=== PATIENT | female | born 1980 | race American Indian/Alaskan Native ===

== ENCOUNTER 2018-08-29 17:48 | Inpatient (IN) | payer SELFPAY ==
[2018-08-29] MEDS ORDERED: NACL 0.9% 1000 ML 1,000 ML IV ONE (17:54)
--- NOTE | 2018-08-29 17:55 | Emergency Department Report ---
Chief Complaint: Hyperglycemia Stated Complaint: POSSIBLE HIGH GLUCOSE Time Seen by Provider: 08/29/18 17:54 - HPI History of Present Illness: dm gastroparesis actively vomiting VS noted Main ED phoned for bed orders placed see emr ABC intact MSE completed MSE screening note: Focused history and physical exam performed. Due to findings the following was ordered: ED Disposition for MSE Condition: Stable
[2018-08-29 18:44] LABS: Hematocrit 35.9 % (30.3-42.9); Hemoglobin 11.8 gm/dl (10.1-14.3); Mean Corpuscular HGB Conc 33 % (30-34); Mean Corpuscular Volume 78 fl (79-97); Platelet Count 249 K/mm3 (140-440); Red Blood Count 4.57 M/mm3 (3.65-5.03); Red Cell Distribution Width 14.8 % (13.2-15.2)
[2018-08-29] MEDS ORDERED: ZOFRAN IV ONE (18:52)
--- NOTE | 2018-08-29 18:54 | Emergency Department Report ---
HPI - General Chief Complaint: Hyperglycemia Time Seen by Provider: 08/29/18 17:54 - HPI HPI: 37-year-old female presents to the emergency department with nausea and vomiting has been going on since late last night or early this morning. Most of the info rmation is been given by her significant other, who is bedside, as the patient is actively vomiting. She has a history of insulin-dependent diabetes, hypertension and gastroparesis. The patient does not have a primary care physician and has been unable to afford her insulin. For this reason he thinks that she could also be in diabetic ketoacidosis, which he has been in before. No recent travel or sick contacts at home. She has not taken anything for her symptoms prior to arrival. ED Past Medical Hx - Past Medical History Previous Medical History?: Yes Hx Hypertension: Yes Hx Diabetes: Yes Additional medical history: Gastroparesis - Surgical History Past Surgical History?: Yes Additional Surgical History: C section - Medications Home Medications: Home Medications Medication Instructions Recorded Confirmed Last Taken Type No Known Home Medications [No 08/29/18 08/29/18 Unknown History Reported Home Medications] ED Review of Systems ROS: Stated complaint: POSSIBLE HIGH GLUCOSE Other details as noted in HPI Comment: All other systems reviewed and negative Constitutional: denies: chills, fever Eyes: denies: eye pain, vision change ENT: denies: ear pain, throat pain Respiratory: denies: cough, shortness of breath Cardiovascular: denies: chest pain, palpitations Gastrointestinal: nausea, vomiting Genitourinary: denies: dysuria, discharge Musculoskeletal: denies: back pain, arthralgia Skin: denies: rash, lesions Neurological: denies: headache, weakness Physical Exam - Physical Exam Vital Signs: Vital Signs 08/29/18 17:55 Temperature 97.9 F Pulse Rate 117 H Respiratory 22 Rate Blood Pressure 207/129 [Right] O2 Sat by Pulse 97 Oximetry Physical Exam: GENERAL: Patient is ill-appearing and actively vomiting. HEENT: Normocephalic. Atraumatic. Patient has moist mucous membranes. EYES: Extraocular motions are intact. Pupils are equal and reactive to light bilaterally. NECK: Supple. Trachea is midline. CHEST/LUNGS: Clear to auscultation. There is no respiratory distress noted. HEART/CARDIOVASCULAR: Regular. There is mild to moderate tachycardia. There is no obvious murmur. ABDOMEN: Abdomen is soft. Generalized abdominal tenderness to palpation. No gu arding. Patient has normal bowel sounds. There is no abdominal distention. SKIN: Skin is warm and dry. NEURO: The patient is awake, alert, and oriented. The patient is cooperative. The patient has no focal neurologic deficits. The patient has normal speech. MUSCULOSKELETAL: There is no tenderness or deformity. There is no evidence of acute injury. ED Course Vital Signs 08/29/18 17:55 Temperature 97.9 F Pulse Rate 117 H Respiratory 22 Rate Blood Pressure 207/129 [Right] O2 Sat by Pulse 97 Oximetry ED Medical Decision Making - Lab Data Result diagrams: 08/29/18 18:01 08/29/18 18:01 - EKG Data -: EKG Interpreted by Me EKG shows normal: sinus rhythm, axis, intervals, QRS complexes, ST-T waves Rate: tachycardia (109 bpm) - EKG Data When compared to previous EKG there are: previous EKG unavailable Interpretation: other (sinus tach. No STEMI) - Radiology Data Radiology results: report reviewed, image reviewed interpreted by me: Abdominal x-ray shows nonspecific nonobstructive bowel gas. PROCEDURE: CT ABDOMEN PELVIS W CON TECHNIQUE: Computerized axial tomography of the abdomen and pelvis was performed after the IV injection of iodinated nonionic contrast. HISTORY: abd pain COMPARISON: No prior studies are available for comparison. FINDINGS: Visualized lower thorax: No significant abnormality. Liver: Normal size and attenuation. Spleen: There are hypodense lesions in the spleen which are in nonspecific. These measure up to 1 centimeter.. These could be hemangiomas. Gallbladder and biliary system: Normal. Pancreas: Normal. Adrenals: Normal. Kidneys: There are no kidney stones or ureteral stones. There is no hydronephrosis. There is equal enhancement and excretion of contrast per. GI tract: There is moderate stool in the colon. There is no obstruction or fecal impaction. There is no colitis. The stomach and small bowel are unremarkable. The appendix is normal.. Lymph nodes and mesentery: Normal. Vasculature: Normal. Bladder: The urinary bladder is distended.. Reproductive organs: Uterus is unremarkable. There is a 2 centimeter cyst in the left ovary.. Peritoneum: There is no ascites or free air, abscess or adenopathy.. Musculoskeletal structures: No significant abnormality. Other: None. IMPRESSION: There are hypodense lesions in the spleen which are in nonspecific. These measure up to 1 centimeter.. These could be hemangiomas. There are no kidney stones or ureteral stones. There is no hydronephrosis. There is equal enhancement and excretion of contrast per. There is moderate stool in the colon. There is no obstruction or fecal impactio n. There is no colitis. The stomach and small bowel are unremarkable. The appendix is normal.. The urinary bladder is distended. Uterus is unremarkable. There is a 2 centimeter cyst in the left ovary.. There is no ascites or free air, abscess or adenopathy.. Transcribed By: CO Dictated By: ELIZABETH BALL MD Electronically Authenticated By: ELIZABETH BALL MD Signed Date/Time: 08/30/18 0143 - Medical Decision Making Patient presents to the emergency department with abdominal pain, nausea and vomiting. She is actively vomiting both in triage and when she gets back to the main emergency department. Her blood sugar is only about 200 and she has no venous acidosis and does not appear to be in diabetic ketoacidosis. However it does appear consistent with gastroparesis. She was given Zofran, Reglan, pain medication, IV fluid resuscitation and still continues to have the complaints of abdominal pain and vomiting. CT scan shows a splenic hemangioma but otherwise the study is unremarkable. Despite the IV fluid and treatment, the patient remains tachycardic. For all these reasons the patient will be admitted to the hospital for further evaluation and treatment and was accepted for admission by the hospitalist, Dr. Kemp. The patient also presented with extremely elevated blood pressure. She was given a dose of labetalol and then Vasotec with very good improvement. - Differential Diagnosis DKA, HHNK, Gastoparesis, food poisoning, colitis Critical Care Time: No Critical care attestation.: If time is entered above; I have spent that time in minutes in the direct care of this critically ill patient, excluding procedure time. ED Disposition Clinical Impression: Intractable abdominal pain, Diabetic gastroparesis, Hypertensive urgency Intractable nausea and vomiting Qualifiers: Vomiting type: unspecified Qualified Code(s): R11.2 - Nausea with vomiting, unspecified Disposition: OP ADMIT IP TO THIS HOSP Is pt being admited?: Yes Condition: Fair Instructions: Diabetes Mellitus Type 2 in Adults (ED) Time of Disposition: 02:38
[2018-08-29 18:57] LABS: Alanine Aminotransferase 12 units/L (7-56); Albumin 3.7 g/dL (3.9-5); BUN/Creatinine Ratio 18; Blood Urea Nitrogen 9 mg/dL (7-17); Hemolysis Index 74
[2018-08-29] MEDS ORDERED: NORMODYNE IV ONE (20:18)
[2018-08-29] MEDS ORDERED: PEPCID IV ONE (21:17)
[2018-08-29] MEDS ORDERED: MORPHINE IV ONE (21:17)
[2018-08-29] MEDS ORDERED: APRESOLINE IV ONE (21:17)
[2018-08-29 22:08] LABS: Bilirubin,Urine NEG (Negative); Blood,Urine NEG (Negative); Color,Urine Yellow (Yellow); Hyaline Casts,Urine 1 /LPF; Mucus,Urine FEW /HPF; Protein,Urine >500 mg/dL (Negative); Urobilinogen,Urine < 2.0 mg/dL (<2.0)
--- NOTE | 2018-08-29 22:35 | XRay Report ---
FINAL REPORT PROCEDURE: Abdomen. TECHNIQUE: Portable AP supine and upright views. HISTORY: Abdominal pain. COMPARISON: No prior studies are available for comparison. FINDINGS: The bowel gas pattern is normal. There are no signs of obstruction. There is no evidence of pneumoper itoneum. The soft tissues are unremarkable. The regional skeleton appears intact. IMPRESSION: Normal study of the abdomen.
[2018-08-29] MEDS ORDERED: VASOTEC IV ONE (22:38)
[2018-08-30] MEDS ORDERED: MORPHINE ONE (00:58)
[2018-08-30] MEDS ORDERED: ZOFRAN ONE (00:58)
[2018-08-30] MEDS ORDERED: NACL 0.9% 1000 ML 1,000 ML IV ONE (01:05)
[2018-08-30] MEDS ORDERED: MORPHINE IV ONE (01:07)
[2018-08-30] MEDS ORDERED: ZOFRAN IV ONE (01:07)
--- NOTE | 2018-08-30 01:43 | Cat Scan Report ---
FINAL REPORT PROCEDURE: CT ABDOMEN PELVIS W CON TECHNIQUE: Computerized axial tomography of the abdomen and pelvis was performed after the IV inject ion of iodinated nonionic contrast. HISTORY: abd pain COMPARISON: No prior studies are available for comparison. FINDINGS: Visualized lower thorax: No significant abnormality. Liver: Normal size and attenuation. Spleen: There are hypodense lesions in the spleen which are in nonspecific. These measure up to 1 kasi timeter.. These could be hemangiomas. Gallbladder and biliary system: Normal. Pancreas: Normal. Adrenals: Normal. Kidneys: There are no kidney stones or ureteral stones. There is no hydronephrosis. There is equal en hancement and excretion of contrast per. GI tract: There is moderate stool in the colon. There is no obstruction or fecal impaction. There is no colitis. The stomach and small bowel are unremarkable. The appendix is normal.. Lymph nodes and mesentery: Normal. Vasculature: Normal. Bladder: The urinary bladder is distended.. Reproductive organs: Uterus is unremarkable. There is a 2 centimeter cyst in the left ovary.. Peritoneum: There is no ascites or free air, abscess or adenopathy.. Musculoskeletal structures: No significant abnormality. Other: None. IMPRESSION: There are hypodense lesions in the spleen which are in nonspecific. These measure up to 1 centimeter. . These could be hemangiomas. There are no kidney stones or ureteral stones. There is no hydronephrosis. There is equal enhancement and excretion of contrast per. There is moderate stool in the colon. There is no obstruction or fecal impaction. There is no colitis . The stomach and small bowel are unremarkable. The appendix is normal.. The urinary bladder is distended. Uterus is unremarkable. There is a 2 centimeter cyst in the left ovary.. There is no ascites or free air, abscess or adenopathy..
[2018-08-30] MEDS ORDERED: D50W (25GM) Syringe IV PRN (03:12)
[2018-08-30] MEDS ORDERED: REGLAN IV PRN (03:14)
[2018-08-30] MEDS: NACL 0.9% 1000 ML 1,000 ML IV SCH ×3 (04:00→16:20)
[2018-08-30] MEDS: HumuLIN R SUB-Q SCH ×6 (04:20→21:23)
[2018-08-30] MEDS: MORPHINE IV PRN ×5 (04:20→20:13)
[2018-08-30] MEDS ORDERED: NACL 0.9% 500 ML 500 ML ONE (05:08)
--- NOTE | 2018-08-30 05:59 | History and Physical Report ---
CHIEF COMPLAINT: Nausea and vomiting. OTHER COMPLAINT: Include abdominal pain. HISTORY OF PRESENTING ILLNESS: The patient is a 37-year-old female who said she has been having nausea and vomiting going on since yesterday morning associated with abdominal pain. There is no history of diarrhea, no history of constipation. Also, the patient denied history of fever, chills, shortness of breath or chest pain and presented for evaluation. The patient says that she does not have a primary care doctor and has been unable to afford her insulin. PAST MEDICAL HISTORY: Pertinent for hypertension, diabetes mellitus, diabetic gastroparesis. PAST SURGICAL HISTORY: Pertinent for . FAMILY HISTORY: Family history is noncontributory. SOCIAL HISTORY: The patient does not smoke cigarette, does not drink alcohol, does not use illicit drug. MEDICATIONS: The patient's home medications are not known at this time. ALLERGIES: THE PATIENT IS ALLERGIC TO OMEPRAZOLE. REVIEW OF SYSTEMS: CONSTITUTIONAL: There is no fever, no chills, no diaphoresis. HEENT: There is no headache or sore throat. CARDIOVASCULAR SYSTEM: There is no chest pain or orthopnea. RESPIRATORY SYSTEM: There is no shortness of breath or cough. GASTROINTESTINAL SYSTEM: Abdominal pain present. Nausea and vomiting present. No diarrhea. No constipation. NEUROLOGICAL SYSTEM: There is no numbness, no dizziness, no altered mental status. MUSCULOSKELETAL SYSTEM: There is no joint pain or swelling. DERMATOLOGICAL SYSTEM: There is no skin rash or itching. GENITOURINARY SYSTEM: There is no dysuria, hematuria or flank pain. Rest of system review is normal. PHYSICAL EXAMINATION: GENERAL: At the time of exam, the patient was found to be alert, oriented x 3 and in mild to moderate distress due to vomiting and abdominal pain. VITAL SIGNS: At the initial time of presentation show temperature of 97.9 degrees Fahrenheit, pulse of 117, respiration 22, blood pressure 207/129, O2 sat of 97% on room air and blood pressure later came down to 92/37. HEENT: Showed pupils to be equal, round, reactive to light and accommodating. Extraocular muscles are intact. NECK: Neck is supple with no JVD or carotid bruit. CARDIOVASCULAR SYSTEM: Showed normal first and second heart sounds with no gallops or murmurs. RESPIRATORY SYSTEM: Show good air entry on both sides of the lungs with no abnormal breath sounds. GASTROINTESTINAL SYSTEM: Show abdomen to be full, soft with generalized tenderness with no guarding, no rigidity and no organomegaly was elicited. Bowel sound is normal. NEUROLOGICAL: Neuro exam shows no focal deficit. MUSCULOSKELETAL SYSTEM: Show no joint swelling or tenderness. DERMATOLOGICAL SYSTEM: Show no skin rash. GENITOURINARY SYSTEM: Showing no costovertebral angle tenderness. PERTINENT LABORATORY DATA AND IMAGING STUDIES: The patient had CT of the abdomen and pelvis done and this shows moderate stool in the colon with no obstruction or fecal impaction found. No colitis was found and the small bowel and the stomach were normal. Appendix was found to be normal. The patient also had abdominal x-ray done that shows normal study. Lab results; the patient has CBC done with normal white count, normal hemoglobin and normal hematocrit with CBC differential being unremarkable. The patient's chemistry show elevated blood glucose of 216 with unremarkable renal function test and urinalysis was unremarkable. DIAGNOSES: 1. Diabetic gastroparesis. 2. Abdominal pain. 3. Hypertension. PLAN OF CARE: 1. The patient will be admitted to medical-surgical [facility]. 2. The patient will be on IV normal saline running at 125 mL an hour. The patient will be on IV Reglan 10 mg every 6 hours as needed for nausea and vomiting. 3. The patient will be on IV morphine 2 mg every 3 hours as needed for pain. 4. The patient will be n.p.o. until vomiting subsides. 5. The patient will be on Accu-Chek every 4 hours followed by low-dose sliding scale using regular insulin coverage. JOB# [id number] OCN/NTS
[2018-08-30] MEDS ORDERED: NACL 0.9% 500 ML 500 ML IV ONE (06:35)
[2018-08-30] MEDS: ZESTRIL PO SCH ×2 (13:41→22:50)
--- NOTE | 2018-08-30 14:33 | Progress Note ---
Assessment and Plan Assessment and plan: 37-year-old female admitted with hyperglycemia and abdominal pain concerning for gastroparesis Diabetic Gastroparesis Diabetes Mellitus with Hyperglycemia Peritoneal Irritation Constipation Hypertension Plan: Continue supportive care Give lactulose Continue Reglan but schedule Continue pain control Adjust insulin for better control between 140-160 DVT/GI prophy Plan discussed with family. History Interval history: Patient is seen today for: Gastroparesis Seen and examined at bedside; 24hour events reviewed; nursing staff ; no adverse overnight events reported to me; Denies any chest pain, nausea, vomiting, diarrhea No fever noted blood pressure controlled Hospitalist Physical - Physical exam Narrative exam: VITAL SIGNS: Reviewed. GENERAL: The patient appeared well nourished and normally developed. Appears in moderate distress complaining of pain abdomen. Vital signs as documented. HEAD: No signs of head trauma. EYES: Pupils are equal. Extraocular motions intact. EARS: Hearing grossly intact. MOUTH: Oropharynx is normal. NECK: No adenopathy, no JVD. CHEST: Chest with clear breath sounds bilaterally. No wheezes, rales, or rhonchi. CARDIAC: Regular rate and rhythm. S1 and S2, without murmurs, gallops, or rubs. VASCULAR: No Edema. Peripheral pulses normal and equal in all extremities. ABDOMEN: Soft, generalized tenderness no sign of distention. No rebound or guarding, and no masses palpated. Bowel Sounds normal. MUSCULOSKELETAL: Good range of motion of all major joints. Extremities without clubbing, cyanosis or edema. NEUROLOGIC EXAM: Alert and oriented x 3. No focal sensory or strength deficits. Speech normal. Follows commands. PSYCHIATRIC: Mood normal. SKIN: No rash or lesions. - Constitutional Vitals: Temp Pulse Resp BP Pulse Ox 98.5 F 116 H 20 161/100 100 08/30/18 08:34 08/30/18 08:34 08/30/18 08:34 08/30/18 08:34 08/30/18 08:34 Results - Labs CBC & Chem 7: 08/29/18 18:01 08/29/18 18:01 Labs: Laboratory Last Values WBC 10.1 K/mm3 (4.5-11.0) 08/29/18 18:01 RBC 4.57 M/mm3 (3.65-5.03) 08/29/18 18:01 Hgb 11.8 gm/dl (10.1-14.3) 08/29/18 18:01 Hct 35.9 % (30.3-42.9) 08/29/18 18:01 MCV 78 fl (79-97) L 08/29/18 18:01 MCH 26 pg (28-32) L 08/29/18 18:01 MCHC 33 % (30-34) 08/29/18 18:01 RDW 14.8 % (13.2-15.2) 08/29/18 18:01 Plt Count 249 K/mm3 (140-440) 08/29/18 18:01 Lymph % (Auto) Enterprise Application Architect 08/29/18 18:01 [place] % (Auto) Enterprise Application Architect 08/29/18 18:01 Eos % (Auto) Enterprise Application Architect 08/29/18 18:01 Baso % (Auto) Enterprise Application Architect 08/29/18 18:01 Lymph # Enterprise Application Architect 08/29/18 18:01 [place] # Enterprise Application Architect 08/29/18 18:01 Eos # Enterprise Application Architect 08/29/18 18:01 Baso # Enterprise Application Architect 08/29/18 18:01 Seg Neutrophils % [employer] Application [employer] 08/29/18 18:01 Seg Neutrophils # Enterprise Application Architect 08/29/18 18:01 VBG pH 7.428 (7.320-7.420) H 08/29/18 18:01 Sodium 138 mmol/L (137-145) 08/29/18 18:01 Potassium 3.8 mmol/L (3.6-5.0) 08/29/18 18:01 Chloride 96.9 mmol/L (98-107) L 08/29/18 18:01 Carbon Dioxide 22 mmol/L (22-30) 08/29/18 18:01 Anion Gap 23 mmol/L 08/29/18 18:01 BUN 9 mg/dL (7-17) 08/29/18 18:01 Creatinine 0.5 mg/dL (0.7-1.2) L 08/29/18 18:01 Estimated GFR > 60 ml/min 08/29/18 18:01 BUN/Creatinine Ratio 18 % 08/29/18 18:01 Glucose 216 mg/dL (65-100) H 08/29/18 18:01 POC Glucose 162 (70-105) H 08/30/18 12:04 Hemoglobin A1c 11.7 % (4-6) H 08/30/18 11:56 Calcium 9.0 mg/dL (8.4-10.2) 08/29/18 18:01 Total Bilirubin 0.30 mg/dL (0.1-1.2) 08/29/18 18:01 AST 22 units/L (5-40) 08/29/18 18:01 ALT 12 units/L (7-56) 08/29/18 18:01 Alkaline Phosphatase 88 units/L (35-129) 08/29/18 18:01 Total Protein 6.4 g/dL (6.3-8.2) 08/29/18 18:01 Albumin 3.7 g/dL (3.9-5) L 08/29/18 18:01 Albumin/Globulin Ratio 1.4 % 08/29/18 18:01 HCG, Qual Negative (Negative) 08/29/18 18:01 Urine Color Yellow (Yellow) 08/29/18 21:36 Urine Turbidity Slightly-cloudy (Clear) 08/29/18 21:36 Urine pH 7.0 (5.0-7.0) 08/29/18 21:36 Ur Specific [place] 1.022 (1.003-1.030) 08/29/18 21:36 Urine Protein >500 mg/dL (Negative) 08/29/18 21:36 Urine Glucose (UA) >=500 mg/dL (Negative) 08/29/18 21:36 Urine Ketones 80 mg/dL (Negative) 08/29/18 21:36 Urine Blood Neg (Negative) 08/29/18 21:36 Urine Nitrite Neg (Negative) 08/29/18 21:36 Urine Bilirubin Neg (Negative) 08/29/18 21:36 Urine Urobilinogen < 2.0 mg/dL (<2.0) 08/29/18 21:36 Ur Leukocyte Esterase Neg (Negative) 08/29/18 21:36 Urine WBC (Auto) 5.0 /HPF (0.0-6.0) 08/29/18 21:36 Urine RBC (Auto) 15.0 /HPF (0.0-6.0) 08/29/18 21:36 U Epithel Cells (Auto) 21.0 /HPF (0-13.0) H 08/29/18 21:36 Hyaline Casts 1 /LPF 08/29/18 21:36 Urine Mucus Few /HPF 08/29/18 21:36 - Imaging and Cardiology CT scan - abdomen: image reviewed (moderated stool burden)
[2018-08-30] MEDS: REGLAN IV SCH ×2 (15:00→22:49)
[2018-08-30] MEDS ORDERED: CEPHULAC PO ONE (15:00)
[2018-08-30] MEDS ORDERED: ZESTRIL PO SCH (22:00)
[2018-08-31] MEDS: HumuLIN R SUB-Q SCH ×6 (03:45→22:53)
[2018-08-31] MEDS: MORPHINE IV PRN ×2 (03:50)
[2018-08-31] MEDS: REGLAN IV SCH ×4 (03:50→22:52)
[2018-08-31] MEDS ORDERED: CALAN IV ONE (05:31)
[2018-08-31] MEDS ORDERED: APRESOLINE IV PRN (07:41)
[2018-08-31] MEDS ORDERED: HALDOL PO NR (11:00)
[2018-08-31] MEDS: DILAUDID IV PRN ×3 (11:46→23:32)
--- NOTE | 2018-08-31 11:57 | Progress Note ---
Assessment and Plan Assessment and plan: 37-year-old female admitted with hyperglycemia and abdominal pain concerning for gastroparesis Diabetic Gastroparesis Diabetes Mellitus with Hyperglycemia Peritoneal Irritation Constipation Hypertension urgency Plan: Continue supportive care ACEI PRN IV One dose haldol Trial of clear liquids Give lactulose Continue Reglan but schedule Continue pain control Adjust insulin for better control between 140-160 DVT/GI prophy Plan discussed with family. History Interval history: Patient is seen today for: Gastroparesis Seen and examined at bedside; 24hour events reviewed; nursing staff ; no adverse overnight events reported to me; Denies any chest pain, nausea, vomiting, diarrhea Patient still with abdominal pain- rates it a 7/10 in intensity No fever noted blood pressure controlled Hospitalist Physical - Physical exam Narrative exam: VITAL SIGNS: Reviewed. GENERAL: The patient appeared well nourished and normally developed. Appears in moderate distress complaining of pain abdomen. Vital signs as documented. HEAD: No signs of head trauma. EYES: Pupils are equal. Extraocular motions intact. EARS: Hearing grossly intact. MOUTH: Oropharynx is normal. NECK: No adenopathy, no JVD. CHEST: Chest with clear breath sounds bilaterally. No wheezes, rales, or rho nchi. CARDIAC: Regular rate and rhythm. S1 and S2, without murmurs, gallops, or rub s. VASCULAR: No Edema. Peripheral pulses normal and equal in all extremities. ABDOMEN: Soft, generalized tenderness no sign of distention. No rebound or guarding, and no masses palpated. Bowel Sounds normal. MUSCULOSKELETAL: Good range of motion of all major joints. Extremities without clubbing, cyanosis or edema. NEUROLOGIC EXAM: Alert and oriented x 3. No focal sensory or strength deficits. Speech normal. Follows commands. PSYCHIATRIC: Mood normal. SKIN: No rash or lesions. - Constitutional Vitals: Temp Pulse Resp BP Pulse Ox 99.4 F 107 H 18 202/100 100 08/31/18 09:59 08/31/18 09:59 08/31/18 09:59 08/31/18 09:59 08/31/18 09:59 Results - Labs CBC & Chem 7: 08/29/18 18:01 08/29/18 18:01 Labs: Laboratory Last Values WBC 10.1 K/mm3 (4.5-11.0) 08/29/18 18:01 RBC 4.57 M/mm3 (3.65-5.03) 08/29/18 18:01 Hgb 11.8 gm/dl (10.1-14.3) 08/29/18 18:01 Hct 35.9 % (30.3-42.9) 08/29/18 18:01 MCV 78 fl (79-97) L 08/29/18 18:01 MCH 26 pg (28-32) L 08/29/18 18:01 MCHC 33 % (30-34) 08/29/18 18:01 RDW 14.8 % (13.2-15.2) 08/29/18 18:01 Plt Count 249 K/mm3 (140-440) 08/29/18 18:01 Lymph % (Auto) Records Management Engineer 08/29/18 18:01 [place] % (Auto) Records Management Engineer 08/29/18 18:01 Eos % (Auto) Records Management Engineer 08/29/18 18:01 Baso % (Auto) Records Management Engineer 08/29/18 18:01 Lymph # Records Management Engineer 08/29/18 18:01 [place] # Records Management Engineer 08/29/18 18:01 Eos # Records Management Engineer 08/29/18 18:01 Baso # Records Management Engineer 08/29/18 18:01 Seg Neutrophils % Records Management Engineer 08/29/18 18:01 Seg Neutrophils # Records Management Engineer 08/29/18 18:01 VBG pH 7.428 (7.320-7.420) H 08/29/18 18:01 Sodium 138 mmol/L (137-145) 08/29/18 18:01 Potassium 3.8 mmol/L (3.6-5.0) 08/29/18 18:01 Chloride 96.9 mmol/L (98-107) L 08/29/18 18:01 Carbon Dioxide 22 mmol/L (22-30) 08/29/18 18:01 Anion Gap 23 mmol/L 08/29/18 18:01 BUN 9 mg/dL (7-17) 08/29/18 18:01 Creatinine 0.5 mg/dL (0.7-1.2) L 08/29/18 18:01 Estimated GFR > 60 ml/min 08/29/18 18:01 BUN/Creatinine Ratio 18 % 08/29/18 18:01 Glucose 216 mg/dL (65-100) H 08/29/18 18:01 POC Glucose 116 (70-105) H 08/31/18 08:12 Hemoglobin A1c 11.7 % (4-6) H 08/30/18 11:56 Calcium 9.0 mg/dL (8.4-10.2) 08/29/18 18:01 Total Bilirubin 0.30 mg/dL (0.1-1.2) 08/29/18 18:01 AST 22 units/L (5-40) 08/29/18 18:01 ALT 12 units/L (7-56) 08/29/18 18:01 Alkaline Phosphatase 88 units/L (35-129) 08/29/18 18:01 Total Protein 6.4 g/dL (6.3-8.2) 08/29/18 18:01 Albumin 3.7 g/dL (3.9-5) L 08/29/18 18:01 Albumin/Globulin Ratio 1.4 % 08/29/18 18:01 HCG, Qual Negative (Negative) 08/29/18 18:01 Urine Color Yellow (Yellow) 08/29/18 21:36 Urine Turbidity Slightly-cloudy (Clear) 08/29/18 21:36 Urine pH 7.0 (5.0-7.0) 08/29/18 21:36 Ur Specific [place] 1.022 (1.003-1.030) 08/29/18 21:36 Urine Protein >500 mg/dL (Negative) 08/29/18 21:36 Urine Glucose (UA) >=500 mg/dL (Negative) 08/29/18 21:36 Urine Ketones 80 mg/dL (Negative) 08/29/18 21:36 Urine Blood Neg (Negative) 08/29/18 21:36 Urine Nitrite Neg (Negative) 08/29/18 21:36 Urine Bilirubin Neg (Negative) 08/29/18 21:36 Urine Urobilinogen < 2.0 mg/dL (<2.0) 08/29/18 21:36 Ur Leukocyte Esterase Neg (Negative) 08/29/18 21:36 Urine WBC (Auto) 5.0 /HPF (0.0-6.0) 08/29/18 21:36 Urine RBC (Auto) 15.0 /HPF (0.0-6.0) 08/29/18 21:36 U Epithel Cells (Auto) 21.0 /HPF (0-13.0) H 08/29/18 21:36 Hyaline Casts 1 /LPF 08/29/18 21:36 Urine Mucus Few /HPF 08/29/18 21:36
[2018-08-31] MEDS ORDERED: CATAPRES-TTS PATCH TD SCH (12:00)
[2018-08-31] MEDS: VASOTEC IV SCH ×2 (12:03→18:46)
[2018-08-31] MEDS: ZESTRIL PO SCH (14:44)
[2018-08-31] MEDS: APRESOLINE PO SCH (22:52)
[2018-09-01] MEDS: HumuLIN R SUB-Q SCH ×3 (04:00→08:14)
[2018-09-01] MEDS: REGLAN IV SCH ×2 (04:30→09:27)
[2018-09-01] MEDS: DILAUDID IV PRN (04:31)
[2018-09-01] MEDS: APRESOLINE PO SCH ×2 (06:47→15:12)
[2018-09-01] MEDS: VASOTEC IV SCH ×3 (06:48→11:28)
[2018-09-01 11:29] VITALS: BP 122/60
[2018-09-01] MEDS ORDERED: HumuLIN R SUB-Q SCH (11:30)
--- NOTE | 2018-09-01 13:32 | Discharge Summary ---
Providers - Providers Date of Admission: 08/30/18 02:38 Attending physician: UZAIR IBRAHIM MD [facility] Reason for admission: gastroparesis Condition: Stable Hospital course: 37-year-old female admitted with hyperglycemia and abdominal pain concerning for gastroparesis. Patient was placed NPO with improvement in symptoms in additional Pain medicine was judiciously used. I advised her on better management of diabetes mellitus. she verablized understanding. Diabetic Gastroparesis Diabetes Mellitus with Hyperglycemia Peritoneal Irritation Constipation Hypertensive Disposition: DC- TO HOME OR SELFCARE Time spent for discharge: 35 mins Core Measure Documentation - Palliative Care Palliative Care/ Comfort Measures: Not Applicable - Core Measures Any of the following diagnoses?: none Exam - Physical Exam Narrative exam: VITAL SIGNS: Reviewed. GENERAL: The patient appeared well nourished and normally developed. Appears in moderate distress complaining of pain abdomen. Vital signs as documented. HEAD: No signs of head trauma. EYES: Pupils are equal. Extraocular motions intact. EARS: Hearing grossly intact. MOUTH: Oropharynx is normal. NECK: No adenopathy, no JVD. CHEST: Chest with clear breath sounds bilaterally. No wheezes, rales, or rhonchi. CARDIAC: Regular rate and rhythm. S1 and S2, without murmurs, gallops, or rubs. VASCULAR: No Edema. Peripheral pulses normal and equal in all extremities. ABDOMEN: Soft, generalized tenderness no sign of distention. No rebound or guarding, and no masses palpated. Bowel Sounds normal. MUSCULOSKELETAL: Good range of motion of all major joints. Extremities without clubbing, cyanosis or edema. NEUROLOGIC EXAM: Alert and oriented x 3. No focal sensory or strength deficits. Speech normal. Follows commands. PSYCHIATRIC: Mood normal. SKIN: No rash or lesions. - Constitutional Vitals: Temp Pulse Resp BP Pulse Ox 97.7 F 72 20 122/60 97 09/01/18 11:27 09/01/18 11:28 09/01/18 11:27 09/01/18 11:28 09/01/18 11:27 Plan Activity: advance as tolerated, fall precautions Diet: low fat, advance as tolerated Special Instructions: record daily BP diary Follow up with: RADHA SANTANA MD [Referring] - 3-5 Days ANNALEE SILVESTRE MD [Staff Physician] - 7 Days Prescriptions: Hydralazine HCl 50 mg PO TID #90 tablet Insulin NPH/Regular [NovoLIN 70/30] 12 unit SUB-Q BIDDIAB 30 Days units Metoclopramide HCl [Reglan TAB] 5 mg PO TIDAC #30 tablet Ondansetron [Zofran Odt] 4 mg PO Q8HR #90 tab.rapdis Other Discharge Orders: Glucometer supplies[Amb] Location: None Selected Glucometer (Amb) Location: None Selected
== END 2018-09-01 15:30 | disposition home or self-care (01) | DRG 73 ==
LOC: ED 17:48 → 3A 08-30 02:38
PROVIDERS: ADMIT Internal Medicine; ATTEND Internal Medicine
DX: E11.43 Type 2 diabetes mellitus with diabetic autonomic (poly)neuropathy (principal); K65.9 Peritonitis, unspecified; K31.84 Gastroparesis; E11.65 Type 2 diabetes mellitus with hyperglycemia; K59.00 Constipation, unspecified; I16.0 Hypertensive urgency; I10 Essential (primary) hypertension; Z79.4 Long term (current) use of insulin
CPT/HCPCS: 36415; 74019; 74177; 80053; 81001; 82805; 82962; 83036; 84703; 85025; 93005; 93010; 96361; 96374; 96375; 96376; G0378; J1170; J1815; J2270; J2405; J2765; J7030; J7040; Q9967

== ENCOUNTER 2018-09-06 13:06 | Emergency (ER) | payer SELFPAY ==
[2018-09-06] MEDS ORDERED: CATAPRES PO ONE (13:13)
--- NOTE | 2018-09-06 13:13 | Emergency Department Report ---
ED Abdominal Pain HPI - General Chief Complaint: Abdominal Pain Stated Complaint: ABD PAIN/DIABETIC/VOMITING Time Seen by Provider: 09/06/18 13:12 Source: patient, family Mode of arrival: Ambulatory Limitations: No Limitations - History of Present Illness Initial Comments: 37 yo patient with NV and abdominal pain . She has DM, Gastroporesis, HTN. Pain 10/ . Patient recently admitted for Hyperglycemia. No diarrhea or constipation PE: abd with mild TTP and normal BS PT actively retching Meds given-for elevated bp clonide Nausea/Vomitting-Zofran 8 mh iv. BG 337 This initial assessment diagnostic orders/clinical plan/treatment (s) is/Are subject change based on patient's health status, clinical progression and re- assessment by fellow clinical providers in the ED. Further treatment and work-up at subsequent clinical providers discetion. Patient/guardians urged not to elope from s their condition may be serious if not clinically assessed and managed. Inital order include:labs,ivf,med - Related Data Previous Rx's Medication Instructions Recorded Last Taken Type Hydralazine HCl 50 mg PO TID #90 tablet 09/01/18 Unknown Rx Insulin NPH/Regular [NovoLIN 70/30] 12 unit SUB-Q BIDDIAB 30 Days 09/01/18 Unknown Rx units Metoclopramide HCl [Reglan TAB] 5 mg PO TIDAC #30 tablet 09/01/18 Unknown Rx Ondansetron [Zofran Odt] 4 mg PO Q8HR #90 tab.rapdis 09/01/18 Unknown Rx Allergies Allergy/AdvReac Type Severity Reaction Status Date / Time omeprazole Allergy Unknown Verified 09/06/18 13:19 ED Review of Systems ROS: Stated complaint: ABD PAIN/DIABETIC/VOMITING Other details as noted in HPI ED Past Medical Hx - Past Medical History Hx Hypertension: Yes Hx Diabetes: Yes Additional medical history: Gastroparesis - Surgical History Additional Surgical History: C section - Social History Smoking Status: Never Smoker - Medications Home Medications: Home Medications Medication Instructions Recorded Confirmed Last Taken Type Hydralazine HCl 50 mg PO TID #90 tablet 09/01/18 Unknown Rx Insulin NPH/Regular [NovoLIN 70/30] 12 unit SUB-Q BIDDIAB 30 Days 09/01/18 Unknown Rx units Metoclopramide HCl [Reglan TAB] 5 mg PO TIDAC #30 tablet 09/01/18 Unknown Rx Ondansetron [Zofran Odt] 4 mg PO Q8HR #90 tab.rapdis 09/01/18 Unknown Rx ED Physical Exam - General Limitations: No Limitations ED Course Vital Signs 09/06/18 13:19 Temperature 98.3 F Pulse Rate 114 H Respiratory 20 Rate Blood Pressure 208/111 O2 Sat by Pulse 100 Oximetry Critical care attestation.: If time is entered above; I have spent that time in minutes in the direct care of this critically ill patient, excluding procedure time. ED Disposition Condition: Stable Instructions: Abdominal Pain (ED)
[2018-09-06] MEDS ORDERED: ZOFRAN IM ONE (13:14)
[2018-09-06] MEDS ORDERED: NACL 0.9% 1000 ML 1,000 ML IV ONE ×2 (13:17→16:21)
[2018-09-06] MEDS ORDERED: CATAPRES ONE (13:17)
[2018-09-06] MEDS ORDERED: REGLAN IV ONE (13:18)
[2018-09-06] MEDS ORDERED: ZOFRAN ONE (13:18)
--- NOTE | 2018-09-06 13:28 | Emergency Department Report ---
Blank Doc - Documentation Documentation: 37 yo patient with NV and abdominal pain . She has DM, Gastroporesis, HTN. Pain 10/ . Patient recently admitted for Hyperglycemia. No diarrhea or constipation PE: abd with mild TTP and normal BS. Pulse 114, BP 201/111 PT actively retching Meds given-for elevated bp clonide Nausea/Vomitting-Zofran 8 mh iv. BG 337 This initial assessment diagnostic orders/clinical plan/treatment (s) is/Are subject change based on patient's health status, clinical progression and re-ass essment by fellow clinical providers in the ED. Further treatment and work-up at subsequent clinical providers discetion. Patient/guardians urged not to elope from s their condition may be serious if not clinically assessed and managed. Inital order include:labs,ivf,med
[2018-09-06 13:37] LABS: Basophils % (Auto) 0.7 % (0.0-1.8); Eosinophils # (Auto) 0.1 K/mm3 (0.0-0.4); Eosinophils % (Auto) 1.4 % (0.0-4.3); Hematocrit 31.9 % (30.3-42.9); Hemoglobin 10.7 gm/dl (10.1-14.3); Lymphocytes # (Auto) 1.5 K/mm3 (1.2-5.4); Lymphocytes % (Auto) 20.4 % (13.4-35.0); Mean Corpuscular HGB Conc 34 % (30-34); Mean Corpuscular Volume 77 fl (79-97); Monocytes # (Auto) 0.3 K/mm3 (0.0-0.8); Monocytes % (Auto) 3.7 % (0.0-7.3); Platelet Count 283 K/mm3 (140-440); Red Blood Count 4.15 M/mm3 (3.65-5.03); Red Cell Distribution Width 14.4 % (13.2-15.2)
[2018-09-06 14:01] LABS: Alanine Aminotransferase 10 units/L (7-56); Albumin 3.3 g/dL (3.9-5); BUN/Creatinine Ratio 14; Blood Urea Nitrogen 7 mg/dL (7-17); Calcium 8.6 mg/dL (8.4-10.2); Hemolysis Index 7
[2018-09-06] MEDS ORDERED: HALDOL IM ONE (16:21)
[2018-09-06] MEDS ORDERED: DILAUDID IV ONE (16:21)
[2018-09-06] MEDS ORDERED: MAGNESIUM SULFATE 2GM/50ML 2 GM/50 ML BAG IV ONE (16:21)
--- NOTE | 2018-09-06 16:23 | Emergency Department Report ---
ED General Adult HPI - General Chief complaint: Abdominal Pain Stated complaint: ABD PAIN/DIABETIC/VOMITING Time Seen by Provider: 09/06/18 13:12 Source: patient, RN notes reviewed, old records reviewed Mode of arrival: Ambulatory Limitations: No Limitations - History of Present Illness Initial comments: This is a 37-year-old female. The patient is not known to this provider previously. The patient has a past medical history of hyperglycemia, presumed gastroparesis, constipation and hypertension. The patient was recently admitted to this hospital for presumed gastroparesis flare/exacerbation. She was managed appropriately and discharged without complication. She presents to the emergency room today again with a complaint of diffuse abdominal pain, persistent nausea and vomiting, malaise and fatigue. Abdominal pain is crampy, aching and diffuse, and does not radiate anywhere, and increases with palpation, and decreased with intravenous hydromorphone, and intramuscular Haldol. The patient denied gynecologic pain, vaginal pain, irritative/obstructive urinary symptoms. -: Gradual Location: abdomen Radiation: non-radiation Severity scale (0 -10): 10 Quality: aching Consistency: constant Improves with: medication Worsens with: eating Associated Symptoms: nausea/vomiting, weakness - Related Data Previous Rx's Medication Instructions Recorded Last Taken Type Hydralazine HCl 50 mg PO TID #90 tablet 09/01/18 Unknown Rx Insulin NPH/Regular [NovoLIN 70/30] 12 unit SUB-Q BIDDIAB 30 Days 09/01/18 Unknown Rx units Metoclopramide HCl [Reglan TAB] 5 mg PO TIDAC #30 tablet 09/01/18 Unknown Rx Ondansetron [Zofran Odt] 4 mg PO Q8HR #90 tab.rapdis 09/01/18 Unknown Rx Dicyclomine [Bentyl] 10 mg PO QID PRN #30 capsule 09/06/18 Unknown Rx Magnesium Oxide [Magnesium] 400 mg PO QDAY #15 tablet 09/06/18 Unknown Rx Potassium Chloride 20 meq PO BID #28 packet 09/06/18 Unknown Rx Promethazine [Phenergan SUPPOS] 50 mg CA Q6H PRN #20 supp.rect 09/06/18 Unknown Rx Allergies Allergy/AdvReac Type Severity Reaction Status Date / Time omeprazole Allergy Unknown Verified 09/06/18 13:19 ED Review of Systems ROS: Stated complaint: ABD PAIN/DIABETIC/VOMITING Other details as noted in HPI Constitutional: malaise. denies: fever Eyes: denies: vision change ENT: denies: epistaxis Respiratory: denies: cough Cardiovascular: denies: chest pain Gastrointestinal: abdominal pain, nausea, vomiting Genitourinary: denies: dysuria Musculoskeletal: arthralgia Skin: denies: lesions Neurological: weakness Psychiatric: anxiety ED Past Medical Hx - Past Medical History Hx Hypertension: Yes Hx Diabetes: Yes Additional medical history: Gastroparesis - Surgical History Additional Surgical History: C section - Social History Smoking Status: Never Smoker Substance Use Type: None - Medications Home Medications: Home Medications Medication Instructions Recorded Confirmed Last Taken Type Hydralazine HCl 50 mg PO TID #90 tablet 09/01/18 Unknown Rx Insulin NPH/Regular [NovoLIN 70/30] 12 unit SUB-Q BIDDIAB 30 Days 09/01/18 Unknown Rx units Metoclopramide HCl [Reglan TAB] 5 mg PO TIDAC #30 tablet 09/01/18 Unknown Rx Ondansetron [Zofran Odt] 4 mg PO Q8HR #90 tab.rapdis 09/01/18 Unknown Rx Dicyclomine [Bentyl] 10 mg PO QID PRN #30 capsule 09/06/18 Unknown Rx Magnesium Oxide [Magnesium] 400 mg PO QDAY #15 tablet 09/06/18 Unknown Rx Potassium Chloride 20 meq PO BID #28 packet 09/06/18 Unknown Rx Promethazine [Phenergan SUPPOS] 50 mg CA Q6H PRN #20 supp.rect 09/06/18 Unknown Rx ED Physical Exam - General Limitations: No Limitations General appearance: alert, anxious, in distress, obese - Head Head exam: Present: atraumatic, normocephalic - Eye Eye exam: Present: normal appearance. Absent: nystagmus - ENT ENT exam: Present: mucous membranes dry, normal external ear exam - Neck Neck exam: Present: normal inspection, full ROM. Absent: tenderness, meningis mus - Respiratory Respiratory exam: Present: normal lung sounds bilaterally. Absent: respiratory distress - Cardiovascular Cardiovascular Exam: Present: normal rhythm, tachycardia, normal heart sounds. Absent: systolic murmur, diastolic murmur, rubs, gallop - GI/Abdominal GI/Abdominal exam: Present: soft, tenderness. Absent: distended, guarding, rebound, rigid, pulsatile mass - Extremities Exam Extremities exam: Present: normal inspection, full ROM, other (2+ pulses noted in the bilateral upper, lower extremities. Compartments soft. No long bony tenderness. The pelvis is stable.). Absent: pedal edema, joint swelling, calf tenderness - Back Exam Back exam: Present: normal inspection, full ROM. Absent: tenderness, CVA tenderness (R), paraspinal tenderness, vertebral tenderness - Neurological Exam Neurological exam: Present: alert, oriented X3, CN II-XII intact, other (Extraocular movements intact. Tongue midline. No facial droop. Facial sensat ion intact to light touch in the V1, V2, V3 distribution bilaterally. 5 and 5 strength in 4 extremities.. Sensation is intact to light touch in 4 extremities.). Absent: motor sensory deficit - Psychiatric Psychiatric exam: Present: anxious - Skin Skin exam: Present: warm, dry, intact, normal color. Absent: rash ED Course Vital Signs 09/06/18 09/06/18 09/06/18 13:19 16:42 17:00 Temperature 98.3 F Pulse Rate 114 H Respiratory 20 Rate Blood Pressure 208/111 182/97 O2 Sat by Pulse 100 97 96 Oximetry 09/06/18 09/06/18 09/06/18 17:30 18:00 18:30 Temperature Pulse Rate Respiratory Rate Blood Pressure 195/102 172/98 167/78 O2 Sat by Pulse 98 96 95 Oximetry 09/06/18 09/06/18 09/06/18 19:00 19:30 20:00 Temperature Pulse Rate Respiratory Rate Blood Pressure 106/43 108/60 123/69 O2 Sat by Pulse 96 96 95 Oximetry - Reevaluation(s) Reevaluation #1: 09/06/18 20:17 Differential diagnosis, including but not limited to: GERD, gastritis, gastroparesis flare, hyperglycemia Assessment and plan: 37-year-old female with known hemoglobin A1c of greater than 11, with presumed recurrent gastroparesis flare/exacerbation. Currently, her blood pressure is 123/60, and her heart rate is 99 bpm. The patient was medicated appropriately with Haldol, hydromorphone, which greatly improved her symptoms. The patient is counseled that her gastroparesis is likely to recur, and will likely improve with diet and lifestyle modifications. No active vomiting currently, tolerating IV fluids at this time. Patient recently prescriptions are reviewed. She will be discharged with rectal Phenergan, as needed Bentyl, medications to replace her hypokalemia and hypomagnesemia, and she is given insulin in the emergency room. The patient will be also referred to outpatient gastroenterology. The patient was counseled that her symptoms will likely be chronic, and recurrent, and improvement will be predicated on weight loss, and appropriate modification to diet and lifestyle. Reevaluation #2: 09/06/18 20:25 Vital Signs 09/06/18 09/06/18 09/06/18 13:19 16:42 17:00 Temperature 98.3 F Pulse Rate 114 H Respiratory 20 Rate Blood Pressure 208/111 182/97 O2 Sat by Pulse 100 97 96 Oximetry 09/06/18 09/06/18 09/06/18 17:30 18:00 18:30 Temperature Pulse Rate Respiratory Rate Blood Pressure 195/102 172/98 167/78 O2 Sat by Pulse 98 96 95 Oximetry 09/06/18 09/06/18 09/06/18 19:00 19:30 20:00 Temperature Pulse Rate Respiratory Rate Blood Pressure 106/43 108/60 123/69 O2 Sat by Pulse 96 96 95 Oximetry ED Medical Decision Making - Lab Data Result diagrams: 09/06/18 13:23 09/06/18 13:23 Vital Signs 09/06/18 13:19 Temperature 98.3 F Pulse Rate 114 H Respiratory 20 Rate Blood Pressure 208/111 O2 Sat by Pulse 100 Oximetry Lab Results 09/06/18 09/06/18 09/06/18 Range/Units 13:17 13:23 13:23 WBC 7.4 (4.5-11.0) K/mm3 RBC 4.15 (3.65-5.03) M/mm3 Hgb 10.7 (10.1-14.3) gm/dl Hct 31.9 (30.3-42.9) % MCV 77 L (79-97) fl MCH 26 L (28-32) pg MCHC 34 (30-34) % RDW 14.4 (13.2-15.2) % Plt Count 283 (140-440) K/mm3 Lymph % (Auto) 20.4 (13.4-35.0) % Bladen % (Auto) 3.7 (0.0-7.3) % Eos % (Auto) 1.4 (0.0-4.3) % Baso % (Auto) 0.7 (0.0-1.8) % Lymph # 1.5 (1.2-5.4) K/mm3 Bladen # 0.3 (0.0-0.8) K/mm3 Eos # 0.1 (0.0-0.4) K/mm3 Baso # 0.0 (0.0-0.1) K/mm3 Seg Neutrophils % 73.8 H (40.0-70.0) % Seg Neutrophils # 5.4 (1.8-7.7) K/mm3 Sodium 139 (137-145) mmol/L Potassium 2.9 L* (3.6-5.0) mmol/L Chloride 99.7 (98-107) mmol/L Carbon Dioxide 27 (22-30) mmol/L Anion Gap 15 mmol/L BUN 7 (7-17) mg/dL Creatinine 0.5 L (0.7-1.2) mg/dL Estimated GFR > 60 ml/min BUN/Creatinine Ratio 14 % Glucose 283 H (65-100) mg/dL POC Glucose 316 H (70-105) Calcium 8.6 (8.4-10.2) mg/dL Magnesium (1.7-2.3) mg/dL Total Bilirubin 0.20 (0.1-1.2) mg/dL AST 12 (5-40) units/L ALT 10 (7-56) units/L Alkaline Phosphatase 72 (35-129) units/L Total Creatine Kinase (30-135) units/L Total Protein 6.0 L (6.3-8.2) g/dL Albumin 3.3 L (3.9-5) g/dL Albumin/Globulin Ratio 1.2 % Lipase 11 L (13-60) units/L HCG, Qual (Negative) 09/06/18 09/06/18 Range/Units 13:23 16:25 WBC (4.5-11.0) K/mm3 RBC (3.65-5.03) M/mm3 Hgb (10.1-14.3) gm/dl Hct (30.3-42.9) % MCV (79-97) fl MCH (28-32) pg MCHC (30-34) % RDW (13.2-15.2) % Plt Count (140-440) K/mm3 Lymph % (Auto) (13.4-35.0) % Bladen % (Auto) (0.0-7.3) % Eos % (Auto) (0.0-4.3) % Baso % (Auto) (0.0-1.8) % Lymph # (1.2-5.4) K/mm3 Bladen # (0.0-0.8) K/mm3 Eos # (0.0-0.4) K/mm3 Baso # (0.0-0.1) K/mm3 Seg Neutrophils % (40.0-70.0) % Seg Neutrophils # (1.8-7.7) K/mm3 Sodium (137-145) mmol/L Potassium (3.6-5.0) mmol/L Chloride (98-107) mmol/L Carbon Dioxide (22-30) mmol/L Anion Gap mmol/L BUN (7-17) mg/dL Creatinine (0.7-1.2) mg/dL Estimated GFR ml/min BUN/Creatinine Ratio % Glucose (65-100) mg/dL POC Glucose (70-105) Calcium (8.4-10.2) mg/dL Magnesium 1.60 L (1.7-2.3) mg/dL Total Bilirubin (0.1-1.2) mg/dL AST (5-40) units/L ALT (7-56) units/L Alkaline Phosphatase (35-129) units/L Total Creatine Kinase 116 (30-135) units/L Total Protein (6.3-8.2) g/dL Albumin (3.9-5) g/dL Albumin/Globulin Ratio % Lipase (13-60) units/L HCG, Qual Negative (Negative) - Radiology Data Radiology results: report reviewed, image reviewed CT scan of the abdomen and pelvis with IV contrast suggests probable gastritis. Otherwise, no other acute findings noted. Critical care attestation.: If time is entered above; I have spent that time in minutes in the direct care of this critically ill patient, excluding procedure time. ED Disposition Clinical Impression: Diabetic gastroparesis Disposition: - TO HOME OR SELFCARE Is pt being admited?: No Does the pt Need Aspirin: No Condition: Stable Instructions: Diabetes Mellitus Type 2 in Adults (ED), Abdominal Pain (ED) Additional Instructions: Take the medications as needed/directed. Continue the outpatient medications that were recently prescribed for you during her recent hospitalization. Symptoms likely coming from diabetic gastroparesis, which in turn is likely due to persistently high levels of blood glucose. I recommend the patient to lose weight, and make certain to consume a diet that is in accordance with the [place] [employer] recommendations. Patient may look up ADA diet recommendations online, or on her Smart phone. http://www.diabetes.org/uqjf-phd-krxsfdv/food/ Symptoms of diabetic gastroparesis typically take months and even years to improve. Patient may advance diet as tolerated, drink water, and should avoid consumption of heavy, spicy foods, Motrin, ibuprofen, Naprosyn, Aleve, salty foods, sugary drinks, carbonated beverages. Follow-up with her primary care doctor or library services coordinator within the next month. Return to the emergency room right away with it, worsened or different symptoms. Prescriptions: Dicyclomine [Bentyl] 10 mg PO QID PRN #30 capsule PRN Reason: Pain , Severe (7-10) Magnesium Oxide [Magnesium] 400 mg PO QDAY #15 tablet Potassium Chloride 20 meq PO BID #28 packet Promethazine [Phenergan SUPPOS] 50 mg CA Q6H PRN #20 supp.rect PRN Reason: Nausea Referrals: [facility] [Provider Group] - 7-10 days [facility] [Provider Group] - 7-10 days
[2018-09-06] MEDS: KCL 10MEQ/100ML 10 MEQ/100 ML BAG IV SCH ×3 (18:27→21:12)
[2018-09-06] MEDS ORDERED: K-DUR PO ONE (20:16)
[2018-09-06] MEDS ORDERED: HumuLIN R IV ONE (20:16)
[2018-09-06 20:25] VITALS: BP 123/69
--- NOTE | 2018-09-06 23:20 | Cat Scan Report ---
PROCEDURE: CT ABDOMEN PELVIS W CON TECHNIQUE: Computerized axial tomography of the abdomen and pelvis was performed after the IV inject ion of iodinated nonionic contrast. CT DOSE LENGTH PRODUCT: 728.69 mGycm HISTORY: abd pain n/v gastroparesis FINDINGS: Contrast-enhanced CT of the abdomen and pelvis was performed following the intravenous administration of contrast. Comparison is made to the unenhanced examination of August 10, 2018. The heart is normal in size. The lung bases appear clear. There is wall thickening distal esophagus consistent with esophagitis. ABDOMEN: There is considerable wall thickening of the stomach, somewhat worse in comparison to the pr ior examination consistent with gastritis. No free air is seen. There is mild fatty infiltration of the liver without suspect focal hepatic lesion. There are multiple hypodense lesions in the spleen, likely partial volume averaging of cysts, similar to prior CT examination. The largest of these is in the posterior spleen approximately 1.3 cm. The adrenal glands and pancreas are within normal limits. The gallbladder is unremarkable. There is no renal or ureteral calculus. There is no small or large bowel obstruction. Pelvis: The appendix is not seen. There is no evidence of appendicitis. There is no evidence of diverticuliti s. The endometrial stripe is mildly thickened at 1.5 cm. There is a left ovarian cyst, 3.8 cm. The right ovary is not clearly identified. The urinary bladder is very distended without obstructing lesion id entified. The vagina appears thick-walled which may represent vaginitis. IMPRESSION: Wall thickening of distal esophagus consistent with esophagitis ABDOMEN: Considerable gastric wall thickening likely gastritis Pelvis: Distention of urinary bladder This document is electronically signed by Vernon Cabrera MD., September 06 2018 08:02:43 PM ET
== END 2018-09-06 21:14 | disposition home or self-care (01) ==
LOC: ED 13:06
DX: E11.43 Type 2 diabetes mellitus with diabetic autonomic (poly)neuropathy (principal); K31.84 Gastroparesis; I10 Essential (primary) hypertension; Z88.8 Allergy status to other drugs, medicaments and biological substances; Z79.4 Long term (current) use of insulin
CPT/HCPCS: 36415; 74177; 80053; 82550; 82962; 83690; 83735; 84703; 85025; 96365; 96368; 96372; 96375; 99284; J1170; J1630; J2405; J3475; J3480; J7030; Q9967

== ENCOUNTER 2018-09-13 14:33 | Emergency (ER) | payer SELFPAY ==
[2018-09-13] MEDS ORDERED: NACL 0.9% 1000 ML 1,000 ML IV ONE (15:33)
[2018-09-13] MEDS ORDERED: ZOFRAN IV ONE (15:33)
--- NOTE | 2018-09-13 15:33 | Emergency Department Report ---
Chief Complaint: Abdominal Pain Stated Complaint: DIABETES/ABD PAIN Time Seen by Provider: 09/13/18 15:31 - HPI History of Present Illness: NAUSEA AND VOMITING RX REGLAN BP MED INSULIN ZOFRAN PCP NONE PSH 2 SEC TOE AMP PMH DM HTN GASTROPERESIS NO THC NO DRUGS NO ETOH MSE COMPLETED MSE screening note: Focused history and physical exam performed. Due to findings the following was ordered: ED Disposition for MSE Condition: Stable Instructions: Abdominal Pain (ED)
[2018-09-13 15:57] LABS: Basophils # (Auto) 0.1 K/mm3 (0.0-0.1); Basophils % (Auto) 0.8 % (0.0-1.8); Eosinophils % (Auto) 0.5 % (0.0-4.3); Hematocrit 31.6 % (30.3-42.9); Hemoglobin 10.5 gm/dl (10.1-14.3); Lymphocytes # (Auto) 1.3 K/mm3 (1.2-5.4); Lymphocytes % (Auto) 18.5 % (13.4-35.0); Mean Corpuscular HGB Conc 33 % (30-34); Mean Corpuscular Volume 78 fl (79-97); Monocytes # (Auto) 0.3 K/mm3 (0.0-0.8); Monocytes % (Auto) 3.8 % (0.0-7.3); Platelet Count 290 K/mm3 (140-440); Red Blood Count 4.07 M/mm3 (3.65-5.03); Red Cell Distribution Width 14.3 % (13.2-15.2)
[2018-09-13 16:13] LABS: Alanine Aminotransferase 8 units/L (7-56); Albumin 3.4 g/dL (3.9-5); BUN/Creatinine Ratio 12; Blood Urea Nitrogen 7 mg/dL (7-17); Hemolysis Index 3
[2018-09-13 16:19] LABS: Bilirubin,Direct < 0.2 mg/dL (0-0.2)
[2018-09-13] MEDS ORDERED: MORPHINE IV ONE (16:56)
--- NOTE | 2018-09-13 17:05 | Emergency Department Report ---
HPI - General Chief Complaint: Abdominal Pain Time Seen by Provider: 09/13/18 15:31 - HPI HPI: 37-year-old -[place] male presents to ED with abdominal discomfort. Patient has a history of diabetes, gastroparesis, as as similar pain in the past. This current symptoms have been going on for the past 3-4 days but worse today. Patient hasn't taking any medications at home for her current symptoms. She denies any fever, chills or night sweats. Rates pain as moderate in severity, located in abdominal umbilicus radiating bilaterally. Patient is accompanied by nausea, vomiting, but no diarrhea. She does have a primary care physician and states she receives her prescription performed the ED. She denies any alleviating factors, states eating and activities are exacerbating factors. ED Past Medical Hx - Past Medical History Previous Medical History?: Yes Hx Hypertension: Yes Hx Diabetes: Yes Additional medical history: Gastroparesis - Surgical History Past Surgical History?: Yes Additional Surgical History: C section - Family History Family history: hypertension - Social History Smoking Status: Never Smoker Substance Use Type: None - Medications Home Medications: Home Medications Medication Instructions Recorded Confirmed Last Taken Type Hydralazine HCl 50 mg PO TID #90 tablet 09/01/18 Unknown Rx Insulin NPH/Regular [NovoLIN 70/30] 12 unit SUB-Q BIDDIAB 30 Days 09/01/18 Unknown Rx units Metoclopramide HCl [Reglan TAB] 5 mg PO TIDAC #30 tablet 09/01/18 Unknown Rx Ondansetron [Zofran Odt] 4 mg PO Q8HR #90 tab.rapdis 09/01/18 Unknown Rx Dicyclomine [Bentyl] 10 mg PO QID PRN #30 capsule 09/06/18 Unknown Rx Magnesium Oxide [Magnesium] 400 mg PO QDAY #15 tablet 09/06/18 Unknown Rx Potassium Chloride 20 meq PO BID #28 packet 09/06/18 Unknown Rx Promethazine [Phenergan SUPPOS] 50 mg [place] Q6H PRN #20 supp.rect 09/06/18 Unknown Rx Bisacodyl [Dulcolax] 5 mg PO DAILY PRN #30 tablet 09/13/18 Unknown Rx Cyclobenzaprine [Flexeril] 10 mg PO TID PRN #30 tablet 09/13/18 Unknown Rx ED Review of Systems ROS: Stated complaint: DIABETES/ABD PAIN Other details as noted in HPI Comment: All other systems reviewed and negative Constitutional: denies: chills, fever Eyes: denies: eye pain, eye discharge, vision change ENT: denies: ear pain, throat pain Respiratory: denies: cough, shortness of breath, wheezing Cardiovascular: denies: chest pain, palpitations Endocrine: no symptoms reported Gastrointestinal: abdominal pain, nausea, vomiting. denies: diarrhea Genitourinary: denies: urgency, dysuria, discharge Musculoskeletal: denies: back pain, joint swelling, arthralgia Skin: denies: rash, lesions Neurological: denies: headache, weakness, paresthesias Psychiatric: denies: anxiety, depression Hematological/Lymphatic: denies: easy bleeding, easy bruising Physical Exam - Physical Exam Vital Signs: Vital Signs 09/13/18 15:31 Pulse Rate 112 H Respiratory 20 Rate Blood Pressure 184/121 O2 Sat by Pulse 99 Oximetry Physical Exam: - General vital signs reviewed Limitations: No Limitations General appearance: alert, in no apparent distress - Head Head exam: Present: atraumatic, normocephalic - Eye Eye exam: Present: normal appearance - ENT ENT exam: Present: mucous membranes moist - Neck Neck exam: Present: normal inspection - Respiratory Respiratory exam: Present: normal lung sounds bilaterally. Absent: respiratory distress - Cardiovascular Cardiovascular Exam: Present: regular rate, normal rhythm. Absent: systolic murmur, diastolic murmur, rubs, gallop - GI/Abdominal GI/Abdominal exam: Present: soft, normal bowel sounds, periumbilical tenderness no rebound - Extremities Exam Extremities exam: Present: normal inspection - Back Exam Back exam: Present: normal inspection - Neurological Exam Neurological exam: Present: alert, oriented X3 - Psychiatric Psychiatric exam: Present: normal affect, normal mood - Skin Skin exam: Present: warm, dry, intact, normal color. Absent: rash ED Course Vital Signs 09/13/18 15:31 Pulse Rate 112 H Respiratory 20 Rate Blood Pressure 184/121 O2 Sat by Pulse 99 Oximetry - Reevaluation(s) Reevaluation #1: 09/13/18 17:05 Mild improvement, patient given morphine 4 mg IV, Zofran 4 mg IV, nose normal saline 1 L. Continue to observe her, will reevaluate soon. ED Medical Decision Making - Lab Data Result diagrams: 09/13/18 15:46 09/13/18 15:46 Critical care attestation.: If time is entered above; I have spent that time in minutes in the direct care of this critically ill patient, excluding procedure time. ED Disposition Clinical Impression: Diabetic gastroparesis Disposition: DC-01 TO HOME OR SELFCARE Is pt being admited?: No Does the pt Need Aspirin: No Condition: Stable Instructions: Diabetes Mellitus Type 2 in Adults (ED), Abdominal Pain (ED) Prescriptions: Bisacodyl [Dulcolax] 5 mg PO DAILY PRN #30 tablet PRN Reason: Constipation Cyclobenzaprine [Flexeril] 10 mg PO TID PRN #30 tablet PRN Reason: Muscle Spasm Referrals: RADHA SANTANA MD [Primary Care Provider] - 3-5 Days
--- NOTE | 2018-09-13 19:30 | XRay Report ---
PROCEDURE: XR ABDOMEN 1V AP HISTORY: abdomen pain FINDINGS: Supine view of the abdomen was acquired and demonstrates air within nondistended loops of s mall bowel large bowel. No bowel obstruction is seen. Some stool seen in the colon without colonic di latation. The patient appears to be mildly constipated. There is no radiopaque renal or ureteral calculus. IMPRESSION: No bowel obstruction Mild constipation This document is electronically signed by Vernon Cabrera MD., September 13 2018 07:27:40 PM ET
[2018-09-13] MEDS ORDERED: TORADOL IV ONE (20:11)
[2018-09-13 20:36] VITALS: BP 178/110
== END 2018-09-13 20:42 | disposition home or self-care (01) ==
LOC: ED 14:33
DX: E11.43 Type 2 diabetes mellitus with diabetic autonomic (poly)neuropathy (principal); K31.84 Gastroparesis; I10 Essential (primary) hypertension; R11.2 Nausea with vomiting, unspecified; Z88.5 Allergy status to narcotic agent; Z79.4 Long term (current) use of insulin
CPT/HCPCS: 36415; 74018; 80048; 80076; 82962; 83690; 84703; 85025; 96361; 96374; 96375; 99284; J1885; J2270; J2405; J7030

== ENCOUNTER 2018-10-01 22:52 | Emergency (ER) | payer OTHER ==
--- NOTE | 2018-10-01 23:39 | XRay Report ---
PROCEDURE: XR CHEST 1V AP TECHNIQUE: Chest radiograph single view. HISTORY: Chest Pain COMPARISONS: None . FINDINGS: Heart: Normal. Mediastinum/Vessels: Normal. Lungs/Pleural space: Normal. Bony thorax: No acute osseous abnormality. Life support devices: None. IMPRESSION: No acute cardiopulmonary abnormality. This document is electronically signed by Andrea Bunn MD., October 01 2018 11:37:11 PM ET
[2018-10-02] MEDS ORDERED: HALDOL IM STA (00:08)
[2018-10-02] MEDS ORDERED: DILAUDID IV ONE (00:08)
[2018-10-02] MEDS ORDERED: NACL 0.9% 1000 ML 2,000 ML IV ONE (00:09)
[2018-10-02] MEDS ORDERED: NACL 0.9% 1000 ML 1,000 ML IV ONE (00:09)
--- NOTE | 2018-10-02 00:09 | Emergency Department Report ---
ED General Adult HPI - General Chief complaint: Chest Pain Stated complaint: CHEST PAIN/EMESIS Time Seen by Provider: 10/02/18 00:01 Source: patient, family, RN notes reviewed, old records reviewed Mode of arrival: Ambulatory Limitations: Physical Limitation - History of Present Illness Initial comments: This is a 38-year-old female. I have evaluated this patient in the past. Her past medical history includes presumed diabetes, gastroparesis, consti pation, hypertension. Patient has had multiple visits to this department in this hospital for gastroparesis flare, exacerbation. The patient reports that she is not today. The patient presents to the ER with a complaint of typical gastroparesis flare/exacerbation. She describes multiple episodes of unopposed nonbloody, nonbilious emesis. Started over the weekend. She reports too many episodes of vomiting to count. She reports that she feels dehydrated and weak. She has diffuse crampy sharp abdominal pain. In the past, Haldol, hydromorphone have improved the symptoms. She denies urinary symptoms. She reports that she is not . She reports that 1-1/2 days ago, she developed central constant chest wall pain, which does not radiate to the back, arms and neck, is not associated with diaphoresis. No recent aspirin consumption. Patient denies calf pain, calf swelling, oral contraceptive use. Patient has had 2 CT scans of the abdomen and pelvis within the past 2 months at this hospital, which were both negative for acute disease. -: Gradual Location: chest, abdomen Radiation: non-radiation Severity scale (0 -10): 10 Quality: stabbing Consistency: other Improves with: medication, rest Worsens with: movement - Related Data Previous Rx's Medication Instructions Recorded Last Taken Type Hydralazine HCl 50 mg PO TID #90 tablet 09/01/18 Unknown Rx Insulin NPH/Regular [NovoLIN 70/30] 12 unit SUB-Q BIDDIAB 30 Days 09/01/18 Unknown Rx units Magnesium Oxide [Magnesium] 400 mg PO QDAY #15 tablet 09/06/18 Unknown Rx Potassium Chloride 20 meq PO BID #28 packet 09/06/18 Unknown Rx Bisacodyl [Dulcolax] 5 mg PO DAILY PRN #30 tablet 09/13/18 Unknown Rx Cyclobenzaprine [Flexeril] 10 mg PO TID PRN #30 tablet 09/13/18 Unknown Rx Dicyclomine [Bentyl] 20 mg PO QID #10 tablet 09/30/18 Unknown Rx Ondansetron [Zofran Odt] 4 mg PO Q8HR #10 tab.rapdis 09/30/18 Unknown Rx Dicyclomine [Bentyl] 10 mg PO QID PRN #30 capsule 10/02/18 Unknown Rx Metoclopramide HCl [Reglan TAB] 5 mg PO TIDAC #30 tablet 10/02/18 Unknown Rx Ondansetron [Zofran ODT TAB] 4 mg PO Q8HR #90 tab.rapdis 10/02/18 Unknown Rx Promethazine [Phenergan SUPPOS] 50 mg [place] Q6H PRN #20 supp.rect 10/02/18 Unknown Rx Allergies Allergy/AdvReac Type Severity Reaction Status Date / Time omeprazole Allergy Unknown Verified 09/06/18 13:19 ED Review of Systems ROS: Stated complaint: CHEST PAIN/EMESIS Other details as noted in HPI Constitutional: malaise, weakness Eyes: denies: vision change ENT: denies: epistaxis Respiratory: denies: cough Cardiovascular: chest pain Gastrointestinal: abdominal pain, nausea, vomiting. denies: diarrhea, constipation Genitourinary: denies: dysuria Musculoskeletal: arthralgia Skin: denies: lesions Neurological: weakness Psychiatric: anxiety ED Past Medical Hx - Past Medical History Previous Medical History?: Yes Hx Hypertension: Yes Hx Diabetes: Yes Additional medical history: Gastroparesis - Surgical History Past Surgical History?: Yes Additional Surgical History: C section - Social History Smoking Status: Never Smoker Substance Use Type: None - Medications Home Medications: Home Medications Medication Instructions Recorded Confirmed Last Taken Type Hydralazine HCl 50 mg PO TID #90 tablet 09/01/18 Unknown Rx Insulin NPH/Regular [NovoLIN 70/30] 12 unit SUB-Q BIDDIAB 30 Days 09/01/18 Unknown Rx units Magnesium Oxide [Magnesium] 400 mg PO QDAY #15 tablet 09/06/18 Unknown Rx Potassium Chloride 20 meq PO BID #28 packet 09/06/18 Unknown Rx Bisacodyl [Dulcolax] 5 mg PO DAILY PRN #30 tablet 09/13/18 Unknown Rx Cyclobenzaprine [Flexeril] 10 mg PO TID PRN #30 tablet 09/13/18 Unknown Rx Dicyclomine [Bentyl] 20 mg PO QID #10 tablet 09/30/18 Unknown Rx Ondansetron [Zofran Odt] 4 mg PO Q8HR #10 tab.rapdis 09/30/18 Unknown Rx Dicyclomine [Bentyl] 10 mg PO QID PRN #30 capsule 10/02/18 Unknown Rx Metoclopramide HCl [Reglan TAB] 5 mg PO TIDAC #30 tablet 10/02/18 Unknown Rx Ondansetron [Zofran ODT TAB] 4 mg PO Q8HR #90 tab.rapdis 10/02/18 Unknown Rx Promethazine [Phenergan SUPPOS] 50 mg W[place] Q6H PRN #20 supp.rect 10/02/18 Unknown Rx ED Physical Exam - General Limitations: Physical Limitation General appearance: alert, anxious, in distress, obese - Head Head exam: Present: atraumatic, normocephalic - Eye Eye exam: Present: normal appearance, EOMI - ENT ENT exam: Present: mucous membranes dry, normal external ear exam - Neck Neck exam: Present: normal inspection, full ROM. Absent: tenderness, meningismus - Respiratory Respiratory exam: Present: normal lung sounds bilaterally. Absent: respiratory distress - Cardiovascular Cardiovascular Exam: Present: normal rhythm, tachycardia, normal heart sounds. Absent: systolic murmur, diastolic murmur, rubs, gallop - GI/Abdominal GI/Abdominal exam: Present: soft, tenderness, other (there is mild diffuse abdominal tenderness, with no sniffing and rebound, guarding or peritoneal signs). Absent: distended, guarding, rebound, rigid, pulsatile mass - Extremities Exam Extremities exam: Present: normal inspection, full ROM, other (2+ pulses noted in the bilateral upper, lower extremities. Compartments soft. No long bony tenderness. The pelvis is stable.). Absent: pedal edema, joint swelling, calf tenderness - Back Exam Back exam: Present: normal inspection, full ROM. Absent: tenderness, CVA tenderness (R), paraspinal tenderness, vertebral tenderness - Neurological Exam Neurological exam: Present: alert, other (Extraocular movements intact. Tongue midline. No facial droop. Facial sensation intact to light touch in the V1, V2, V3 distribution bilaterally. 5 and 5 strength in 4 extremities.. Sensation is intact to light touch in 4 extremities.). Absent: motor sensory deficit - Psychiatric Psychiatric exam: Present: anxious - Skin Skin exam: Present: warm, dry, intact, normal color. Absent: rash ED Course Vital Signs 10/01/18 10/02/18 10/02/18 23:05 00:18 00:31 Temperature 98.3 F Pulse Rate 126 H 125 H 123 H Respiratory 18 13 10 L Rate Blood Pressure 147/91 189/100 O2 Sat by Pulse 99 Oximetry 10/02/18 10/02/18 10/02/18 00:45 01:00 01:15 Temperature Pulse Rate 106 H 111 H 111 H Respiratory 16 13 14 Rate Blood Pressure 189/100 189/100 131/66 O2 Sat by Pulse Oximetry 10/02/18 10/02/18 10/02/18 01:30 01:45 02:00 Temperature Pulse Rate 107 H 101 H 102 H Respiratory 13 17 15 Rate Blood Pressure 118/57 118/57 85/35 O2 Sat by Pulse Oximetry 10/02/18 10/02/18 10/02/18 02:30 02:45 03:00 Temperature Pulse Rate 112 H 103 H 95 H Respiratory 15 12 13 Rate Blood Pressure 99/55 118/57 100/50 O2 Sat by Pulse Oximetry 10/02/18 10/02/18 10/02/18 03:15 03:30 03:45 Temperature Pulse Rate 95 H 99 H 100 H Respiratory 14 12 13 Rate Blood Pressure 100/50 116/63 116/63 O2 Sat by Pulse Oximetry 10/02/18 10/02/18 04:00 04:15 Temperature Pulse Rate 93 H 100 H Respiratory 12 19 Rate Blood Pressure 115/60 115/60 O2 Sat by Pulse Oximetry - Reevaluation(s) Reevaluation #1: 10/02/18 00:39 Differential diagnosis, including without limited to: Gastroparesis flare/exacerbation, esophagitis, GERD, gastritis, hiatal hernia Assessment and plan: 38-year-old female with recurrent episode of probable gastroparesis flare/exacerbation. I have evaluated this patient for multiple/i dentical complaints within the past 6 weeks. I find the patient to be low risk by well's criteria, tachycardia improved, likely secondary to dehydration and pain. She is not hypoxic. No lower extre mity evidence of DVT or palpable cord. Final patient to be low risk by heart score, LÓPEZ score, as the patient endorses that her chest pain started after her vomiting started. We will treat her supportively and symptomatically with IV fluids, pain medication, nausea medication, we will obtain screening laboratory studies and we will reassess. Reevaluation #2: 10/02/18 05:18 Tachycardia resolved. Patient able to tolerate liquid feeds. The EKG morphologically unchanged from prior EKG. Troponin negative 1. Chest pain present for greater than 24 hours. Unlikely to be acute coronary syndrome. As per the [employer] clinical policy, myocardial infarction may be excluded with 1 set of troponins, cardiac enzymes if symptoms present for greater than 8 hours. No active vomiting, sleeping comfortably, belly soft on repeat examination. Today's presentation appears to be similar to prior presentations. Patient medically suitable to be discharged to follow up with outpatient gastroenterology. Reevaluation #3: 10/02/18 05:19 Hypertension improved. Tachycardia improved. Hyperglycemia improved. ED Medical Decision Making - Lab Data Result diagrams: 10/01/18 23:33 10/01/18 23:33 Vital Signs 10/01/18 23:05 Temperature 98.3 F Pulse Rate 126 H Respiratory 18 Rate Blood Pressure 147/91 O2 Sat by Pulse 99 Oximetry Lab Results 10/01/18 Range/Units 23:33 WBC 12.3 H (4.5-11.0) K/mm3 RBC 4.33 (3.65-5.03) M/mm3 Hgb 11.0 (10.1-14.3) gm/dl Hct 32.8 (30.3-42.9) % MCV 76 L (79-97) fl MCH 25 L (28-32) pg MCHC 33 (30-34) % RDW 14.7 (13.2-15.2) % Plt Count 284 (140-440) K/mm3 Lymph % (Auto) 20.5 (13.4-35.0) % [place] % (Auto) 4.4 (0.0-7.3) % Eos % (Auto) 0.1 (0.0-4.3) % Baso % (Auto) 0.6 (0.0-1.8) % Lymph # 2.5 (1.2-5.4) K/mm3 [place] # 0.5 (0.0-0.8) K/mm3 Eos # 0.0 (0.0-0.4) K/mm3 Baso # 0.1 (0.0-0.1) K/mm3 Seg Neutrophils % 74.4 H (40.0-70.0) % Seg Neutrophils # 9.1 H (1.8-7.7) K/mm3 - EKG Data -: EKG Interpreted by Me EKG shows normal: sinus rhythm Rate: tachycardia - EKG Data 10/02/18 00:41 Sinus tachycardia, 125 bpm, normal axis, QTC prolonged, high left ventricular voltage, consistent with ST elevation myocardial infarction, this EKG appears to be unchanged when compared to prior EKG from 08/29/2018. - Radiology Data Radiology results: pending, report reviewed, image reviewed Chest x-ray negative for acute disease. Abdominal x-ray negative for acute disease. Critical care attestation.: If time is entered above; I have spent that time in minutes in the direct care of this critically ill patient, excluding procedure time. ED Disposition Clinical Impression: Diabetic gastroparesis Disposition: DC-01 TO HOME OR SELFCARE Is pt being admited?: No Does the pt Need Aspirin: No Condition: Stable Instructions: Diabetes Mellitus Type 2 in Adults (ED) Additional Instructions: Take the pain medication, nausea medications as needed/directed. 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 Avoid consumption of Motrin, ibuprofen, Naprosyn, Aleve, heavy spicy foods. Adhere to a diabetic family diet, as recommended on the [employer] website. Symptoms of gastroparesis will likely come and go, this is normal and expected, unfortunately. Return to the emergency room right away with it, worsened or different symptoms, or symptoms not present on the initial ER evaluation. Referrals: RADHA SANTANA MD [Primary Care Provider] - 3-5 Days CYNDY PALOMARES MD [Staff Physician] - 3-5 Days
[2018-10-02 00:21] LABS: Basophils # (Auto) 0.1 K/mm3 (0.0-0.1); Basophils % (Auto) 0.6 % (0.0-1.8); Eosinophils % (Auto) 0.1 % (0.0-4.3); Hematocrit 32.8 % (30.3-42.9); Lymphocytes # (Auto) 2.5 K/mm3 (1.2-5.4); Lymphocytes % (Auto) 20.5 % (13.4-35.0); Mean Corpuscular HGB Conc 33 % (30-34); Mean Corpuscular Volume 76 fl (79-97); Monocytes # (Auto) 0.5 K/mm3 (0.0-0.8); Monocytes % (Auto) 4.4 % (0.0-7.3); Platelet Count 284 K/mm3 (140-440); Red Blood Count 4.33 M/mm3 (3.65-5.03); Red Cell Distribution Width 14.7 % (13.2-15.2)
[2018-10-02 00:47] LABS: BUN/Creatinine Ratio 14; Blood Urea Nitrogen 15 mg/dL (7-17); Calcium 9.1 mg/dL (8.4-10.2); Hemolysis Index 4
[2018-10-02] MEDS ORDERED: HumuLIN R IV ONE (01:14)
[2018-10-02 01:22] LABS: INR 0.88 (0.87-1.13)
[2018-10-02 01:37] LABS: Alanine Aminotransferase 6 units/L (7-56); Albumin 3.5 g/dL (3.9-5)
[2018-10-02 01:41] LABS: Bilirubin,Direct < 0.2 mg/dL (0-0.2)
[2018-10-02] MEDS ORDERED: PERCOCET 5/325 PO ONE (02:09)
--- NOTE | 2018-10-02 02:51 | XRay Report ---
PROCEDURE: XR ABDOMEN 2V TECHNIQUE: Abdominal series, including supine and upright AP views. HISTORY: cp abd pain COMPARISONS: None . FINDINGS: Bowel gas pattern: Nonobstructive . Masses or calcifications: None . Bony structures: No significant abnormality . Pneumoperitoneum: None . Other: No significant findings . IMPRESSION: No acute abnormality. This document is electronically signed by Susan Burroughs DO., October 02 2018 02:48:50 AM ET
[2018-10-02 05:40] VITALS: BP 105/52
== END 2018-10-02 06:22 | disposition home or self-care (01) ==
LOC: ED 22:52
DX: E11.43 Type 2 diabetes mellitus with diabetic autonomic (poly)neuropathy (principal); I10 Essential (primary) hypertension; Z79.4 Long term (current) use of insulin; Z88.8 Allergy status to other drugs, medicaments and biological substances
CPT/HCPCS: 36415; 71045; 74019; 80048; 80076; 82550; 82962; 83735; 84484; 84702; 85025; 85610; 93005; 93010; 96361; 96372; 96374; 96375; 99284; J1170; J1630; J7030; J1815